=== PATIENT | male | born 1990 | race Caucasian/White ===

== ENCOUNTER 2018-10-08 10:53 | Emergency (ER) | payer MEDICAID ==
[~2018-10-08] VITALS: Ht 182.9 cm; Wt 90.0 kg
[2018-10-08 10:59] VITALS: BP 137/93
[2018-10-08] MEDS ORDERED: CEPH-572 PO (12:03)
== END 2018-10-08 12:17 | disposition home or self-care (01) ==
LOC: ER 10:53
DX: H60.12 Cellulitis of left external ear (principal); F41.9 Anxiety disorder, unspecified; F17.200 Nicotine dependence, unspecified, uncomplicated; F12.10 Cannabis abuse, uncomplicated; Z88.8 Allergy status to other drugs, medicaments and biological substances; Z79.899 Other long term (current) drug therapy
CPT/HCPCS: 99283

== ENCOUNTER 2019-09-12 20:36 | Emergency (ER) | payer MEDICAID ==
[~2019-09-12] VITALS: Ht 185.4 cm; Wt 86.4 kg
[2019-09-12 20:38] VITALS: BP 129/84
--- NOTE | 2019-09-12 20:46 | NUR ---
ICE PACK PROVIDED; PT REPORTS COLD HAS HELPED IN THE PAST.
[2019-09-12] MEDS ORDERED: CefTRIAXone 2gm/D5W 50ml 50 ML IV ONE (21:50)
[2019-09-12] MEDS ORDERED: normal saline 1000ML IV soln IVB ONE (21:50)
[2019-09-12 22:27] LABS: BASOPHILS # (AUTO) 0.1 X10'3 (0-0.2); BASOPHILS % (AUTO) 0.5 % (0-1); EOSINOPHILS # (AUTO) 0.2 X10'3 (0-0.9); EOSINOPHILS % (AUTO) 1.5 % (0-6); HEMATOCRIT 41.2 % (42.0-52.0); HEMOGLOBIN 14.3 g/dl (14.0-17.9); LYMPHOCYTES % (AUTO) 13.6 % (21-51); MEAN CORPUSCULAR HEMOGLOBIN 29.8 PG (27.0-31.0); MEAN CORPUSCULAR HGB CONC 34.8 g/dL (33.0-36.5); MEAN CORPUSCULAR VOLUME 85.7 FL (78-98); MONOCYTES # (AUTO) 2.1 X10'3 (0-0.9); MONOCYTES % (AUTO) 14.3 % (2-12); NEUTROPHILS # (AUTO) 10.3 X10'3 (1.8-7.7); NEUTROPHILS % (AUTO) 70.1 % (42-75); PLATELET COUNT 225 X10'3 (140-440); RED BLOOD COUNT 4.81 X10'6 (4.70-6.10); RED CELL DISTRIBUTION WIDTH 12.9 % (11.5-14.5); WHITE BLOOD COUNT 14.7 X10'3 (4.5-11.0)
[2019-09-12 22:34] LABS: ALANINE AMINOTRANSFERASE 42 U/L (12-78); ALBUMIN 4.1 G/DL (3.4-5.0); ALKALINE PHOSPHATASE 159 IU/L (46-116); ANION GAP 13 (8-16); ASPARTATE AMINO TRANSFERASE 19 U/L (10-37); BILIRUBIN,TOTAL 1.1 MG/DL (0.1-1.0); BLOOD UREA NITROGEN 9 MG/DL (7-18); BUN/CREATININE RATIO 8.7 (5.4-32.0); CALCIUM 9.3 MG/DL (8.5-10.1); CHLORIDE 95 MMOL/L (99-107); CREATININE 1.03 MG/DL (0.60-1.10); GLUCOSE 96 MG/DL (70-104); POTASSIUM 3.2 MMOL/L (3.5-5.1); SODIUM 133 MMOL/L (135-145); TOTAL CARBON DIOXIDE 25.4 MMOL/L (24-32); TOTAL PROTEIN 8.4 G/DL (6.4-8.2); eGFR 87 ML/MIN
[2019-09-12 22:46] LABS: BANDS% (MANUAL) 4 % (0-10); EOSINOPHILS % (MANUAL) 1 % (0-6); LYMPHOCYTES % (MANUAL) 18 % (21-51); MONOCYTES % (MANUAL) 15 % (2-12); NEUTROPHILS % (MANUAL) 61 % (42-75); PLATELET ESTIMATE NORMAL; REACTIVE LYMPHOCYTES % 1 % (0-0); TOTAL CELLS COUNTED 100
--- NOTE | 2019-09-12 23:15 | NUR ---
pt states he does not want a CT nina and would like to go home. relayed info to PA who will come and speak with pt momentarily
[2019-09-12] MEDS ORDERED: CEPH250T PO (23:18)
[2019-09-12] MEDS ORDERED: DOXY100C43 PO (23:18)
== END 2019-09-12 23:28 | disposition home or self-care (01) ==
LOC: ER 20:37
DX: L03.211 Cellulitis of face (principal); F12.90 Cannabis use, unspecified, uncomplicated; Z88.8 Allergy status to other drugs, medicaments and biological substances
CPT/HCPCS: 36415; 80053; 85025; 85651; 96365; 99284; J0696; J7030

== ENCOUNTER 2019-10-24 17:53 | Emergency (ER) | payer MEDICAID ==
[~2019-10-24] VITALS: Ht 182.9 cm; Wt 90.9 kg
[2019-10-24 18:01] VITALS: BP 155/89
[2019-10-24] MEDS ORDERED: AMOX-580 PO (19:07)
== END 2019-10-24 19:23 | disposition home or self-care (01) ==
LOC: ER 17:53
DX: K04.7 Periapical abscess without sinus (principal); I10 Essential (primary) hypertension; F41.9 Anxiety disorder, unspecified; F12.90 Cannabis use, unspecified, uncomplicated; Z88.8 Allergy status to other drugs, medicaments and biological substances; Z79.2 Long term (current) use of antibiotics; Z98.890 Other specified postprocedural states
CPT/HCPCS: 99283

== ENCOUNTER 2019-11-23 12:43 | Emergency (ER) | payer MEDICAID ==
[~2019-11-23] VITALS: Ht 182.9 cm; Wt 70.5 kg
[2019-11-23 13:13] VITALS: BP 128/77
[2019-11-23] MEDS ORDERED: acetaminophen 325mg tablet PO ONE (13:20)
== END 2019-11-23 17:07 | disposition home or self-care (01) ==
LOC: ER 12:44
DX: J10.1 Influenza due to other identified influenza virus with other respiratory manifestations (principal); I10 Essential (primary) hypertension; F41.9 Anxiety disorder, unspecified; F12.90 Cannabis use, unspecified, uncomplicated; Z98.890 Other specified postprocedural states; Z88.8 Allergy status to other drugs, medicaments and biological substances
CPT/HCPCS: 71045; 87502; 87503; 99284